=== PATIENT | male | born 1995 | race Caucasian/White ===

== ENCOUNTER 2021-10-24 19:38 | Inpatient (IN) | payer SELFPAY ==
[2021-10-24] MEDS ORDERED: Fentanyl 100 MCG/2 ML VIAL ONE (19:43)
[2021-10-24] MEDS ORDERED: Morphine 4 MG/ML VIAL ONE (20:14)
[2021-10-24] MEDS ORDERED: Acetaminophen 500 MG TAB ONE (20:15)
[2021-10-24] MEDS ORDERED: Dextrose 5% in Water 1,000 ML IV PRN (20:16)
[2021-10-24] MEDS ORDERED: Dextrose 50% Abboject 50 ML SYRINGE SLOW IVP PRN (20:16)
[2021-10-24] MEDS ORDERED: Promethazine HCl 25 MG/ML VIAL IM PRN (20:16)
[2021-10-24] MEDS ORDERED: Ondansetron PF 4 MG/2 ML Vial IVP PRN (20:16)
[2021-10-24 20:32] LABS: #Basophils 0.1 thou/uL (0.0-0.2); #Lymphocytes 1.7 thou/uL (1.20-3.40); #Monocytes 1.2 thou/uL (0.11-0.59); #Neutrophils 12.7 thou/uL (1.40-6.50); %Basophils 0.5 % (0.0-1.0); %Eosinophils 0.1 % (0.0-10.0); %Monocytes 7.6 % (0.0-10.0); %Neutrophils 80.8 % (42.0-75.0); Hemoglobin 14.4 g/dL (14.0-18.0); Mean Corpuscular HGB CONC 34.5 g/dL (32.0-36.0); Mean Corpuscular Hemoglobin 31.6 pg (27.0-31.0); Mean Corpuscular Volume 91.4 fL (78.0-98.0); Mean Platelet Volume 7.3 fL (7.4-10.4); Platelet Count 260 thou/uL (130-400); RBC Distribution Width 10.6 % (11.5-14.5); Red Blood Cell (RBC) Count 4.56 mill/uL (4.70-6.10); White Blood Cell (WBC) Count 15.7 thou/uL (4.8-10.8)
[2021-10-24] MEDS ORDERED: Morphine 4 MG/ML VIAL SLOW IVP PRN (20:34)
[2021-10-24] MEDS ORDERED: CEFAZOLIN 1 GM VIAL ONE (20:36)
[2021-10-24 20:51] LABS: Anion Gap 22 mmol/L (10-20); BUN (Urea Nitrogen) 15 mg/dL (8.9-20.6); Calc. Creatinine Clearance 0 mL/min (70-130); Calcium 9.2 mg/dL (7.8-10.44); Carbon Dioxide 15 mmol/L (22-29); Chloride 104 mmol/L (98-107); Glucose 101 mg/dL (70-105); Magnesium 1.8 mg/dL (1.6-2.6); Phosphorus 2.8 mg/dL (2.3-4.7); Potassium 4.4 mmol/L (3.5-5.1); Sodium 137 mmol/L (136-145)
[2021-10-24 21:07] LABS: Lactic Acid 1.1 mmol/L (0.5-2.2)
[2021-10-24] MEDS: Acetaminophen/Codeine 30-300mg Tablet PO PRN (22:36)
[2021-10-24] MEDS: Acetaminophen 325 MG TAB PO SCH (22:36)
[2021-10-24] MEDS: Famotidine/PF 20 mg/2ml Vial SLOW IVP SCH (22:36)
[2021-10-24 22:53] LABS: Hemoglobin 12.9 g/dL (14.0-18.0)
[2021-10-25] MEDS: Acetaminophen 325 MG TAB PO SCH ×2 (04:59→11:39)
[2021-10-25] MEDS: Acetaminophen/Codeine 30-300mg Tablet PO PRN ×2 (04:59→11:39)
[2021-10-25 05:58] LABS: #Basophils 0.1 thou/uL (0.0-0.2); #Eosinphils 0.1 thou/uL (0.0-0.7); #Monocytes 0.9 thou/uL (0.11-0.59); %Basophils 0.8 % (0.0-1.0); %Lymphocytes 28.6 % (21.0-51.0); %Monocytes 12.9 % (0.0-10.0); %Neutrophils 56.7 % (42.0-75.0); Mean Corpuscular HGB CONC 33.2 g/dL (32.0-36.0); Mean Corpuscular Hemoglobin 30.8 pg (27.0-31.0); Mean Corpuscular Volume 92.9 fL (78.0-98.0); Mean Platelet Volume 7.1 fL (7.4-10.4); Platelet Count 203 thou/uL (130-400); RBC Distribution Width 10.5 % (11.5-14.5); Red Blood Cell (RBC) Count 4.21 mill/uL (4.70-6.10); White Blood Cell (WBC) Count 7.1 thou/uL (4.8-10.8)
[2021-10-25 06:30] LABS: Chloride 106 mmol/L (98-107); Potassium 4.4 mmol/L (3.5-5.1); Sodium 136 mmol/L (136-145)
[2021-10-25 06:31] LABS: Calcium 8.7 mg/dL (7.8-10.44); Glucose 86 mg/dL (70-105)
[2021-10-25 06:33] LABS: Carbon Dioxide 16 mmol/L (22-29)
[2021-10-25 06:35] LABS: BUN (Urea Nitrogen) 16 mg/dL (8.9-20.6); Calc. Creatinine Clearance 0 mL/min (70-130)
[2021-10-25 06:41] LABS: Anion Gap 18 mmol/L (10-20)
[2021-10-25 07:47] LABS: Hemoglobin 13.2 g/dL (14.0-18.0)
[2021-10-25] MEDS: Famotidine/PF 20 mg/2ml Vial SLOW IVP SCH (08:18)
[2021-10-25 11:11] VITALS: BP 120/75; TEMP 98.3
[2021-10-25 11:51] LABS: Hemoglobin 14.2 g/dL (14.0-18.0)
== END 2021-10-25 12:45 | disposition home or self-care (01) | DRG 87 ==
LOC: ERS 19:38 → SURG A 20:16
PROVIDERS: ADMIT Surgery; ATTEND Surgery
DX: S06.5X0A Traumatic subdural hemorrhage without loss of consciousness, initial encounter (principal); F41.9 Anxiety disorder, unspecified; S30.1XXA Contusion of abdominal wall, initial encounter; V18.4XXA Pedal cycle driver injured in noncollision transport accident in traffic accident, initial encounter; Z88.0 Allergy status to penicillin; Z88.8 Allergy status to other drugs, medicaments and biological substances
CPT/HCPCS: 36415; 70450; 71045; 72170; 80048; 83605; 83735; 84100; 85025; 96365; 96374; 96375; G0390; J0690; J2270; J3010; S0028

== ENCOUNTER 2021-10-27 12:27 | Emergency (ER) | payer OTHER, SELFPAY ==
[~2021-10-27 12:27] MED LIST: Iopamidol 370 76% 100 ML VIAL ONE
[2021-10-27] MEDS ORDERED: Morphine 4 MG/ML VIAL ONE (13:22)
[2021-10-27 13:32] LABS: #Basophils 0.1 thou/uL (0.0-0.2); #Eosinphils 0.1 thou/uL (0.0-0.7); #Lymphocytes 1.5 thou/uL (1.20-3.40); #Monocytes 0.5 thou/uL (0.11-0.59); #Neutrophils 5.5 thou/uL (1.40-6.50); %Eosinophils 1.1 % (0.0-10.0); %Lymphocytes 19.2 % (21.0-51.0); %Monocytes 6.8 % (0.0-10.0); Hemoglobin 14.1 g/dL (14.0-18.0); Mean Corpuscular HGB CONC 33.2 g/dL (32.0-36.0); Mean Corpuscular Hemoglobin 30.2 pg (27.0-31.0); Mean Corpuscular Volume 90.7 fL (78.0-98.0); Mean Platelet Volume 7.2 fL (7.4-10.4); Platelet Count 268 thou/uL (130-400); RBC Distribution Width 10.5 % (11.5-14.5); Red Blood Cell (RBC) Count 4.69 mill/uL (4.70-6.10); White Blood Cell (WBC) Count 7.6 thou/uL (4.8-10.8)
[2021-10-27 13:41] LABS: INR-International Normal Ratio 0.9; Prothrombin Time 12.3 sec (12.0-14.7)
[2021-10-27 13:52] LABS: ALT (SGPT) 53 U/L (8-55); AST (SGOT) 55 U/L (5-34); Albumin 5.5 g/dL (3.5-5.0); Alkaline Phosphatase 99 U/L (40-110); Anion Gap 16 mmol/L (10-20); BUN (Urea Nitrogen) 19 mg/dL (8.9-20.6); Bilirubin, Total 0.9 mg/dL (0.2-1.2); Calc. Creatinine Clearance 0 mL/min (70-130); Calcium 10.6 mg/dL (7.8-10.44); Carbon Dioxide 26 mmol/L (22-29); Chloride 99 mmol/L (98-107); Globulin 3.2 g/dL (2.4-3.5); Glucose 96 mg/dL (70-105); Lipase 30 U/L (8-78); Potassium 3.7 mmol/L (3.5-5.1); Protein, Total 8.7 g/dL (6.0-8.3); Sodium 137 mmol/L (136-145)
== END 2021-10-27 15:25 | disposition home or self-care (01) ==
LOC: ERS 12:27
DX: S06.5X9A Traumatic subdural hemorrhage with loss of consciousness of unspecified duration, initial encounter (principal); R10.9 Unspecified abdominal pain; R31.9 Hematuria, unspecified; V89.2XXA Person injured in unspecified motor-vehicle accident, traffic, initial encounter
CPT/HCPCS: 74178; 80053; 83690; 85025; 85610; 96374; J2270; Q9967